=== PATIENT | male | born 1965 | race Caucasian/White ===

== ENCOUNTER 2019-10-01 07:37 | Day surgery (SDC) | payer BC ==
[2019-10-01] VITALS (7 sets, daily range): BP systolic 108–119; BP diastolic 67–78; PULSE 68–88; TEMP 98–99.1
[~2019-10-01] VITALS: Ht 182.9 cm; Wt 89.1 kg
[2019-10-01] MEDS ORDERED: CIALIS5 MG PO (08:01)
[2019-10-01] MEDS ORDERED: MOTRIN 200200 MG/TAB PO (08:02)
[2019-10-01] MEDS ORDERED: NORCO 325 MG-51 TAB PO (11:25)
== END 2019-10-01 13:40 | disposition home or self-care (01) ==
LOC: SDCO 07:37
DX: K40.90 Unilateral inguinal hernia, without obstruction or gangrene, not specified as recurrent (principal); Z79.899 Other long term (current) drug therapy
CPT/HCPCS: C1781; J2704; J3010; J7120